=== PATIENT | female | born 1945 | race Caucasian/White ===

== ENCOUNTER 2019-06-30 12:52 | Outpatient (CLI) | payer MEDICARE, OTHER ==
--- NOTE | 2019-06-30 14:24 | CT ---
LUMBAR SPINE CT WITHOUT CONTRAST: Date: 06/30/19 HISTORY: Pain with bilateral lower extremity radiculopathy. TECHNIQUE: Axial CT imaging at 3 mm intervals through the lumbar spine without contrast. Coronal and sagittal re formatted imaging obtained. FINDINGS: Evaluation for central canal and/or neural foraminal stenosis is limited on routine CT. There is an a nterior wedge compression fracture with severe loss of vertebral body height anteriorly at T12, prima rily involving the inferior end plate. There is a probable associated Schmorl's node along the inferi or end plate of T12 as well. There are intrarenal calculi present bilaterally, including a punctate calcification in the mid pole of the right kidney, a 2 mm calcification in the mid pole of the left kidney, and a 7 mm calcificatio n within the lower pole of the left kidney. T12-L1: Disc space narrowing with degenerative end plate change. Bilateral facet hypertrophy. Signif icant bilateral neural foraminal stenosis. At least mild central canal stenosis. L1-2: Bilateral facet hypertrophy with mild/moderate bilateral neural foraminal stenosis. No osseous cause of significant central canal stenosis. L2-3: Mild bilateral facet hypertrophy and hypertrophy of the ligamentum flavum with at least mild b ilateral neural foraminal stenosis. No osseous cause of significant central canal stenosis. L3-4: Prominent bilateral facet hypertrophy and hypertrophy of the ligamentum flavum. At least mild disc bulge present. Probable mild/moderate right and moderate left neural foraminal stenosis, as well as moderate central canal stenosis. L4-5: Prominent bilateral facet hypertrophy. There is disc space narrowing with vacuum disc formatio n. There is anterolisthesis of L4 on L5 measuring 8.0 mm. There is moderate/severe bilateral neural f oraminal stenosis and probable mild central canal stenosis. Patient is status post bilateral laminect darío at this level. L5-S1: Prominent bilateral facet hypertrophy. There is disc space narrowing and vacuum disc formatio n. Mild central canal stenosis and moderate/severe bilateral neural foraminal stenosis suspected. No worrisome lytic or blastic bone lesion. IMPRESSION: 1. Postoperative and degenerative change noted within the lumbar spine as detailed above. There is a n old T12 fracture with severe loss of vertebral body height anteriorly. If further evaluation for ce ntral canal and/or neural foraminal stenosis is clinically warranted, MRI or CT myelogram advised. 2. Bilateral nonobstructing renal calculi. POS: [facility]
== END 2019-06-30 12:53 | disposition home or self-care (01) ==
LOC: TBSIIMAG 12:52
PROVIDERS: ATTEND Neurological Surgery
DX: M54.5 Low back pain (principal); M47.816 Spondylosis without myelopathy or radiculopathy, lumbar region; N20.0 Calculus of kidney; Z98.890 Other specified postprocedural states
CPT/HCPCS: 72131